=== PATIENT | female | born 1985 | race African-American/Black ===

== ENCOUNTER 2019-03-05 06:26 | Inpatient (IN) | payer OTHER ==
[2019-03-05] VITALS (20 sets, daily range): BP systolic 104–164; BP diastolic 64–109
[~2019-03-05] VITALS: Ht 167.6 cm; Wt 85.7 kg
[2019-03-05 06:52] LABS: ABSOLUTE NEUTROPHILS 7.1 thou/uL (1.4-8.2); BASOPHILS 0.8 % (0.0-2.0); EOSINOPHILS 5.1 % (0.0-3.0); HEMATOCRIT 34.1 % (37.0-47.0); HEMOGLOBIN 10.4 gm/dL (12.0-15.0); LYMPHOCYTES 21.2 % (24.0-44.0); MCH 21.4 pg (26.0-34.0); MCHC 30.6 g/dL (28.0-37.0); MCV 69.9 fL (80.0-100.0); MONOCYTES 7.9 % (1.0-8.0); PLATELET COUNT 297 thou/uL (150-400); RBC 4.87 mil/uL (4.20-5.00); RDW 20.2 % (10.5-14.5)
[2019-03-05] MEDS ORDERED: LISINOPRIL-HCT1 EAC1 PO (06:55)
[2019-03-05] MEDS ORDERED: BIRTH CONTROL PO (06:55)
[2019-03-05 06:58] LABS: CALCIUM 8.7 mg/dL (8.5-10.1); CREATININE 0.8 mg/dL (0.6-1.0); POTASSIUM 4.3 mmol/L (3.5-5.1)
[2019-03-05 07:04] LABS: TOTAL BILIRUBIN 0.2 mg/dL (<0.1-1.0); TOTAL PROTEIN 7.7 g/dL (6.4-8.2)
[2019-03-05 08:00] LABS: MAGNESIUM 1.7 mg/dL (1.8-2.4); TROPONIN-I <0.06 ng/mL (<0.06)
--- NOTE | 2019-03-05 08:04 | EKG ---
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
[2019-03-05 09:34] LABS: ABSOLUTE RETIC COUNT 0.0642 10^6/uL; HEMATOCRIT 32.7 % (37.0-47.0); HEMOGLOBIN 9.9 gm/dL (12.0-15.0); MCH 21.1 pg (26.0-34.0); MCHC 30.4 g/dL (28.0-37.0); MCV 69.4 fL (80.0-100.0); OBSERVED RETIC COUNT 1.36 % (0.6-2.6); RBC 4.71 mil/uL (4.20-5.00); RDW 20.6 % (10.5-14.5); WBC 11.3 thou/uL (4.0-11.0)
[2019-03-05 09:43] LABS: PROTIME 9.7 Seconds (9.3-11.4)
[2019-03-05 09:45] LABS: CALCIUM 8.1 mg/dL (8.5-10.1); CREATININE 0.9 mg/dL (0.6-1.0)
--- NOTE | 2019-03-05 09:46 | NUR ---
PT ARRIVE FROM ED AT 0900. NEW C/O BLOODY STOOLS AND ABD PAIN. DR LUGO CALLED, COMING SOON, WILL PUT IN ORDERS. START IVF. LABS DRAWN. PT TEARFUL, SAYS SHE HAS BEEN IGNORING HER SYMPTOMS, THOUGHT THEY WOULD GO AWAY.
[2019-03-05 09:47] LABS: % SATURATION 2 % (20-39); IRON 11 ug/dL (50-170); TIBC 482 ug/dL (250-450)
[2019-03-05 09:48] LABS: POTASSIUM 3.3 mmol/L (3.5-5.1)
--- NOTE | 2019-03-05 09:58 | NUR ---
CM ASSESSMENT: CASE OPENED FOR DC PLANNING. CLINICAL INFO REVIEWED. ADMITTED THRU ER WITH ANGIOEDEMA OF LOWER LIP, RECENTLY STARTED LISINOPRIL. MET WITH PT WHO IS ALERT AND ORIENTED X4. PT LIVES WITH S.O. AND 15 YO SON AND IS INDEPENDENT WITH ADLS/IADLS. PCP DAMIÁN ELDER. 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 APPEARS ADMITTING SAW PT IN ER AND WILL FOLLOW UP WITH VERIFYING INSURANCE.
[2019-03-05 10:22] LABS: FERRITIN 4 ng/mL (8-252)
--- NOTE | 2019-03-06 03:33 | NUR ---
ASSESSMENT: PT REMAIN ALERT AND ORIENT TIMES FOUR. UP AD DIDI TO BR WITH STEADY GAIT. REQUEST PAIN MEDS FOR FACIAL PAIN. LOWER LIP SLIGHTLY SWOLLEN. PT STATE THAT THE EDEMA IN HER LIPS/MOUTH HAS DECREASED SINCE HER ADMISSION. POSSIBLE DC TO HOME TODAY. SLOW PROGRESS TOWARDS DC GOALS, WILL CONTINUE TO MONITOR.
[2019-03-06 04:53] VITALS: BP 130/77
[2019-03-06 05:28] LABS: ALBUMIN 2.7 g/dL (3.4-5.0); ANION GAP 11 mmol/L (7-16); BUN 10 mg/dL (7-18); CALCIUM 7.8 mg/dL (8.5-10.1); CHLORIDE 106 mmol/L (98-107); CO2 21 mmol/L (21-32); CREATININE 0.6 mg/dL (0.6-1.0); GLUCOSE 142 mg/dL (74-106); MAGNESIUM 2.3 mg/dL (1.8-2.4); PHOSPHORUS 1.8 mg/dL (2.5-4.9); SGOT 10 U/L (15-37); SGPT < 6 U/L (30-65); SODIUM 138 mmol/L (136-145); TOTAL BILIRUBIN < 0.1 mg/dL (<0.1-1.0); TOTAL PROTEIN 6.8 g/dL (6.4-8.2)
[2019-03-06 05:37] LABS: HEMOGLOBIN 9.6 gm/dL (12.0-15.0)
[2019-03-06 05:41] LABS: HEMATOCRIT 31.1 % (37.0-47.0); MCH 21.7 pg (26.0-34.0); MCHC 30.8 g/dL (28.0-37.0); MCV 70.5 fL (80.0-100.0); PLATELET COUNT 273 thou/uL (150-400); RBC 4.41 mil/uL (4.20-5.00); RDW 20.5 % (10.5-14.5); WBC 10.2 thou/uL (4.0-11.0)
[2019-03-06 06:47] LABS: ABSOLUTE NEUTROPHILS 9.9 thou/uL (1.4-8.2)
[2019-03-06 06:48] LABS: ANISOCYTOSIS 1+; HYPOCHROMASIA 2+; MICROCYTES 2+; PLATELET ESTIMATE NORMAL
[2019-03-06 07:22] VITALS: BP 149/100
--- NOTE | 2019-03-06 10:21 | EKG ---
[address] [address] ELECTROCARDIOGRAM REPORT Name: NENOSolomonROCAELSUZIE ANDRE Room #: 363- ADM IN M.R.#: [id number] Admission: 03/05/19 Attend Phys: Phyllis Delgado MD Discharge: Date of : 81 Report #: [id number] THIS REPORT FOR: //name// 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 : 1985 Requested By: Phyllis Delgado Order Number: [id number] MD: Emiliano Urbina Measurements Intervals [place] Rate: 79 P: 42 MT: 168 QRS: -2 QRSD: 107 T: -3 QT: 413 QTc: 474 Interpretive Statements Sinus rhythm Probable left atrial enlargement Borderline T abnormalities, inferior leads Compared to ECG 03/05/2019 06:57:01 T-wave abnormality now present Prolonged QT interval no longer present Electronically Signed On 03-06-2019 10:21:20 CDT by Emiliano Urbina [email or web address] <ELECTRONICALLY SIGNED> By: Emiliano Urbina MD 03/06/19 1021 0847 0847 Emiliano Urbina MD /EPI
[2019-03-06 11:26] VITALS: BP 120/87
[2019-03-06 15:32] LABS: HEMATOCRIT 30.6 % (37.0-47.0); HEMOGLOBIN 9.3 gm/dL (12.0-15.0)
[2019-03-06 15:51] VITALS: BP 137/93
[2019-03-06 16:33] VITALS: BP 142/86; BP 152/108
[2019-03-06 19:07] VITALS: BP 151/97
--- NOTE | 2019-03-06 19:20 | NUR ---
ASSUMED CARE AROUND 0715. AXOX4. C/O CHEST PAIN IN AM. NOTIFIED MD, EKG, LAB DRAWS COMPLETED WITH NNO. PER MD COULD BE ESOPHAGEAL IRRITATION. PER , PT CANNOT GO HOME UNTIL HGB IMPROVED AND GI SERVICE IS FURTHER MORE CONSULTED. VISITED PT AT BEDSIDE AND MADE SURE PT'S QUESTIONS WERE ASKED. ONETIME XANAX ORDER AND NEW ORDER FOR AMLODIPINE ORDER. CARE TRANSFERRED TO DAY RN AT THIS TIME.
[2019-03-07 02:52] VITALS: BP 121/75
[2019-03-07 05:46] LABS: BASOPHILS 0.5 % (0.0-2.0); EOSINOPHILS 0.1 % (0.0-3.0); HEMATOCRIT 29.6 % (37.0-47.0); HEMOGLOBIN 8.9 gm/dL (12.0-15.0); LYMPHOCYTES 23.4 % (24.0-44.0); MCH 21.5 pg (26.0-34.0); MCHC 30.1 g/dL (28.0-37.0); MCV 71.3 fL (80.0-100.0); MONOCYTES 4.6 % (1.0-8.0); PLATELET COUNT 273 thou/uL (150-400); POLYS 71.4 % (36.0-66.0); RBC 4.14 mil/uL (4.20-5.00); RDW 20.6 % (10.5-14.5); WBC 12.6 thou/uL (4.0-11.0)
[2019-03-07 05:55] LABS: CALCIUM 8.1 mg/dL (8.5-10.1); CREATININE 0.7 mg/dL (0.6-1.0); PHOSPHORUS 1.7 mg/dL (2.5-4.9); POTASSIUM 3.3 mmol/L (3.5-5.1)
--- NOTE | 2019-03-07 06:02 | NUR ---
PT UP AD DIDI TO BATHROOM. PT TOOK A SHOWER LAST NIGHT. PT HAD PANIC ATTACK, XANAX GIVEN WITH GOOD SUCCESS. PT HAD COMPLAINT OF CHEST PAIN AROUND 0300, GAVE IV PAIN MEDICATION AND ORAL TYLENOL, AND NO MORE COMPLAINTS OF PAIN. IS ROOMING IN. HOURLY ROUNDING.
[2019-03-07 09:19] VITALS: BP 140/98
[2019-03-07 11:51] VITALS: BP 129/95
[2019-03-07 17:01] VITALS: BP 147/101
[2019-03-07 17:12] LABS: URINE BILIRUBIN NEGATIVE (Negative); URINE BLOOD NEGATIVE (Negative); URINE CLARITY CLEAR; URINE COLOR YELLOW; URINE GLUCOSE-RANDOM* NEGATIVE (Negative); URINE KETONES NEGATIVE (Negative); URINE LEUKOCYTES-REFLEX NEGATIVE (Negative); URINE PROTEIN (DIPSTICK) NEGATIVE (Negative); URINE UROBILINOGEN 0.2 E.U./dl (0.2-1.0)
[2019-03-07 17:14] LABS: URINE NITRITE-REFLEX POSITIVE (Negative)
[2019-03-07 17:24] LABS: SQUAMOUS 0-3 Few /LPF (0-3)
[2019-03-07 17:25] LABS: BACTERIA-REFLEX >30 Many /HPF (None Seen); CASTS None Seen /LPF (None Seen); CRYSTALS None Seen /LPF (None Seen); URINE RBC None Seen /HPF (0-2); URINE WBC-REFLEX 0-5 Rare /HPF (0-5)
[2019-03-07 19:43] VITALS: BP 120/88
[2019-03-08 04:41] VITALS: BP 129/91
[2019-03-08 05:45] LABS: ABSOLUTE NEUTROPHILS 6.7 thou/uL (1.4-8.2); HEMATOCRIT 30.1 % (37.0-47.0); HEMOGLOBIN 9.1 gm/dL (12.0-15.0); LYMPHOCYTES 25.8 % (24.0-44.0); MCH 21.6 pg (26.0-34.0); MCHC 30.2 g/dL (28.0-37.0); MCV 71.3 fL (80.0-100.0); MONOCYTES 6.2 % (1.0-8.0); PLATELET COUNT 253 thou/uL (150-400); RBC 4.23 mil/uL (4.20-5.00); RDW 20.3 % (10.5-14.5); WBC 10.3 thou/uL (4.0-11.0)
[2019-03-08 05:57] LABS: ALBUMIN 2.6 g/dL (3.4-5.0); ANION GAP 7 mmol/L (7-16); BUN 9 mg/dL (7-18); CALCIUM 7.9 mg/dL (8.5-10.1); CHLORIDE 106 mmol/L (98-107); CO2 26 mmol/L (21-32); CREATININE 0.7 mg/dL (0.6-1.0); GLUCOSE 90 mg/dL (74-106); MAGNESIUM 1.7 mg/dL (1.8-2.4); PHOSPHORUS 1.8 mg/dL (2.5-4.9); POTASSIUM 3.7 mmol/L (3.5-5.1); SGOT 12 U/L (15-37); SGPT < 6 U/L (30-65); SODIUM 139 mmol/L (136-145); TOTAL BILIRUBIN < 0.1 mg/dL (<0.1-1.0); TOTAL PROTEIN 6.2 g/dL (6.4-8.2)
--- NOTE | 2019-03-08 06:40 | NUR ---
Pt. refused hydrocortisone suppository last night. She also had golytely during the day but didn't finished it. She reported small soft bm. Kept NPO after MN for ED today. She requested pain med for abdominal pain with some relief. She stated she slept well last night. She has been calm and cooperative this am. Will continue to monitor.
[2019-03-08 07:55] VITALS: BP 130/95
[2019-03-08] MEDS ORDERED: NORVASC5 MG PO (11:44)
[2019-03-08] MEDS ORDERED: ANUCORT-HC25 MG RECTAL (11:44)
[2019-03-08 12:15] VITALS: BP 142/95
--- NOTE | 2019-03-08 15:44 | NUR ---
DISCHARGE NOTE: SW reviewed chart and spoke with nursing and attending physician. Pt transferred to 3W from ICU. Pt to have EGD today and then will discharge home if medically stable. No discharge needs identified at this time. SW is available to assist should needs arise.
[2019-03-08] MEDS ORDERED: IRON 100-VITAM1 EACH PO (16:31)
[2019-03-08 17:33] VITALS: BP 142/95
[2019-03-08 17:47] VITALS: BP 142/95
--- NOTE | 2019-03-08 18:32 | NUR ---
Discharge instruction were related to patient. Paperwork signed and appropriate documents sent home with patient. Tele and IV were removed from patient. The patient did not wait for wheelchair transport and walked off the floor without assistance.
--- NOTE | 2019-03-09 12:41 | P ---
[facility] [place] [address] PROCEDURE REPORT Name: ROCAEL MONTANA Room #: 363-P [facility] IN M.R.#: [id number] Admission: 03/05/19 Attend Phys: Phyllis Delgado MD Discharge: 03/08/19 Date of : 81 Report #: [id number] THIS REPORT FOR: //name// CC: JERROD SIMEON Delgado MD DATE OF SERVICE: 03/08/2019 PROCEDURE PERFORMED: Upper endoscopy with biopsies. HISTORY OF PRESENT ILLNESS: The patient is a 33-year-old female with a history of anemia and Hemoccult negative. Recent history of angioedema, now is resolved. She does have heavy menses. She does report intermittent midepigastric abdominal pain. Plan is for upper endoscopy. DESCRIPTION OF PROCEDURE: The risks and benefits of the procedure were explained to the patient, those risks including but not limited to bleeding, perforation and the risk of sedation. She understood these risks and gave informed consent. Sedation was given using propofol per anesthesia. Next, using a standard Olympus upper endoscope, the scope was placed in the patient's mouth and advanced under direct vision through the esophagus, stomach and into the second portion of the duodenum. The esophagus was normal throughout. The GE junction was normal. Overall, the gastric mucosa was normal. Biopsies were obtained to rule out H. pylori. The pylorus was normal and patent. The duodenal bulb, first and second portion were also normal. Biopsies also obtained to rule out the possibility of celiac sprue. The scope was then withdrawn and the procedure terminated. The patient tolerated the procedure well. IMPRESSION: Normal upper endoscopy. RECOMMENDATIONS: 1. Await biopsy results. 2. Continue to monitor hemoglobin. 3. Continue p.o. oral iron. Suspect the patient's anemia may be secondary to menses as her stools were Hemoccult negative. Thank you for allowing me to participate in her care. <ELECTRONICALLY SIGNED> By: Alen Fowler MD 03/09/19 1241 1618 0116 Alen Fowler MD /nt
--- NOTE | 2019-03-11 14:06 | PATH ---
[facility] [place] [address] PATHOLOGY RPT PROCEDURE Name: ROCAEL OLIVIA Room #: 363-P DIS IN M.R.#: [id number] Admission: 03/05/19 Date of : 81 Discharge: 03/08/19 Report #: [id number] Path Case #: [id number] [facility] Accession Number: [id number] . 01 Material submitted: . PART A: duodenum - BX DUODENUM PART B: stomach - BX GASTRIC . 01 Clinical history: . Preop DX: abd pain, anemia Postop DX: same A. R/O sprue B. R/O H. pylori . 02 Diagnosis: A. Small bowel mucosa, duodenum, endoscopic biopsy: - No diagnostic abnormalities present. - Negative for villous blunting or increase in intraepithelial lymphocytes. . B. Gastric mucosa, gastritis, endoscopic biopsy: - Mild reactive gastropathy: - Negative for intestinal metaplasia or atrophy. - Negative for Helicobacter pylori (properly controlled immunohistochemical stain performed). . 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 02 Electronically signed: . Heidi Forrester MD, Pathologist NPI- [id number] . 01 Gross description: . A. Received in formalin labeled "Rocael Olivia Kasandra duodenum R/O Sprue," are six fragments of tijerina soft tissue measuring 0.9 x 0.5 x 0.1 cm in aggregate dimensions and ranging from 0.2 to 0.5 cm in maximum dimension. The specimen is submitted entirely in cassette A1. The smallest fragments may not survive processing. . B. Received in formalin labeled "Rocael OliviaKasandra gastric R/O H. Pylori," are three segments of tijer[place] soft tissue measuring 0.7 x 0.5 x 0.2 cm in aggregate dimensions and ranging from 0.3 to 0.5 cm in maximum dimension. The specimen is submitted entirely in cassette B1. (DAC; 03/09/2019) XNC/XNC 03/09/2019 0905 Local . [address] [place] [address] PATHOLOGY RPT PROCEDURE Name: ROCAEL OLIVIA THAI Room #: 363-P DIS IN M.R.#: [id number] Admission: 03/05/19 Date of : 81 Discharge: 03/08/19 Report #: [id number] Path Case #: [id number] Pathologist provided ICD-10: R10.9, D64.9 . 02 CPT . 759446, 533680, Z57750 Specimen Comment: A courtesy copy of this report has been sent to Specimen Comment: [phone], , . Specimen Comment: Report sent to ,DR ELDER / DR LUGO Specimen Comment: A duplicate report has been generated due to demographic updates. Performed at: [address], [place] [id number] MD Wilfred Khan MD Phone: [phone] Performed at: [address] [id number] MD Heidi Forrester MD Phone: [phone]
--- NOTE | 2019-03-23 10:14 | H ---
[facility] [place] [address] HISTORY AND PHYSICAL Name: YAMILEXCHRISTIANROCAEL THAI Room #: 363-P [facility] IN M.R.#: [id number] Admission: 03/05/19 Attend Phys: Phyllis Delgado MD Discharge: 03/08/19 Date of : 81 Report #: [id number] THIS REPORT FOR: //name// CC: JERROD Delgado DATE OF SERVICE: 03/05/2019 PRIMARY CARE PHYSICIAN: Dr. Krissy Aquino, phone #[phone] Emergency contact for the patient is her [id number], Ashleigh [place], [phone] and other emergency contact is her , Ash Brunson. CHIEF COMPLAINT: 1. Swelling of the lip that started today. 2. Abdominal pain in the right lower quadrant of abdomen since this morning. 3. Blood in stool, bright red blood per rectum intermittently for last 1 month. HISTORY OF PRESENT ILLNESS: The patient is a very pleasant 33-year-old female who is tearful and anxious and informs me that this is not she had planned her day this morning. 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 The patient informs me that she was started on lisinopril and hydrochlorothiazide along with oral contraceptive pills a month ago when she was noticed to have high blood pressure and the patient had done reasonably well for past 1 month for her blood pressure; however, she then started having some lip tingling yesterday evening and then started with the lip swelling this morning. The patient noticed that the left lower lip was severely worsened and it progressed very quickly. She also noticed some throat swelling earlier today, which subsequently had gotten better, but she continued to have some persistent cough with shortness of breath, feeling of shortness of breath, but she was really not dyspneic. The patient informs me that she has not had any fever, shaking chills, night sweats. She does not have any nausea, vomiting, diarrhea. She has not had any constipation as well. The patient has not had any fever, chills, night sweats in past 1 month either. She does have heavy periods, they last for 6 days and the 6 day it starts to taper down and become slower and she has been told to have anemia since 2011 when she gave to her daughter who then in 14 days because of holes in her heart, some congenital heart defects which could not be repaired and the patient again starts crying talking about it. The patient has been anemic since then. The patient informs me that she has not had any diagnosis of depression. She does deal with sad feelings every now and then, but no suicidal ideation or homicidal ideation. The patient informs me that she has not had any history of hemorrhoids or GI problems prior to this past 1 month and oral contraceptive pills were started because of metromenorrhagia and this has been her first month and she is due for periods in [facility] [address] [place] [address] HISTORY AND PHYSICAL Name: YAMILEXCHRISTIANROCAELSUZIE ANDRE Room #: 363-P [facility] IN M.R.#: [id number] Admission: 03/05/19 Attend Phys: Phyllis Delgado MD Discharge: 03/08/19 Date of : 81 Report #: [id number] about a couple of days. PAST MEDICAL HISTORY: Significant for: 1. Anemia since 2011. 2. Menorrhagia. 3. Hypertension. 4. Tobacco use. 5. Three times a week alcohol use. ALLERGIES: The patient is allergic to LISINOPRIL and PEANUTS. CURRENT MEDICATIONS: Prior to admitting to the ER today, lisinopril-hydrochlorothiazide and oral contraceptive pills. PERSONAL AND SOCIAL HISTORY: The patient takes natural tobacco one cigarette a day and started 5 years ago and she does drink one glass of wine at least 3-5 nights a week, maybe more or less but never more than one glass of wine more or less days. Denies any recreational drug use. 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 FAMILY HISTORY: Mother when she was 7 years old and father with myocardial infarction at the age of 56 years, a year ago, had known coronary artery disease. SURGICAL HISTORY: The patient has had 2 C-sections. Other than that, no other history. REVIEW OF SYSTEMS: The patient has had blood in stool for 1 month, bright red blood per rectum as noted above and fatigue progressively worsening in last 1 month and no history of hemorrhoids. Denies any constipation or diarrhea or any change in bowel habits. Review of systems is also positive for some depression, just sad feelings but no suicidal or homicidal ideation. The patient also informs me that she has had interrupted sleep and she cannot really explain any reason for that. REVIEW OF SYSTEMS: Negative for dysuria, hematuria, frequency or urgency of urination. Denies any back pain or denies any chronic pain symptoms. PHYSICAL EXAMINATION: VITAL SIGNS: Temperature 36.8, heart rate 84, respirations 16, blood pressure 128/95, pulse oximetry 99% when she presented to the Emergency Room. GENERAL: Alert and oriented to time, place and person, very pleasant 33-year-old female seen in ICU with a very depressed affect, tearful and anxious but not in any acute cardiopulmonary distress. HEENT: Normocephalic, atraumatic. Pupils equally round, reactive to light and accommodation. Extraocular muscle movement intact. Conjunctivae clear. Mild pallor noted. Sclerae nonicteric. Oropharynx clear. Mucous membranes moist. [facility] [address] [place] [address] HISTORY AND PHYSICAL Name: ROCAEL MONTANA Room #: 363-P [facility] IN [facility]#: [id number] Admission: 03/05/19 Attend Phys: Phyllis Delgado MD Discharge: 03/08/19 Date of : 81 Report #: [id number] NECK: Supple, no JVD, no lymphadenopathy, no thyromegaly. HEART: S1, S2, regular. No murmur, no S3, no S4. LUNGS: Clear to auscultation bilaterally without any crackles or wheezes and equal breath sounds bilaterally. ABDOMEN: Soft, nontender in epigastric area and right and left upper quadrants; however, the patient does have some tenderness in the right lower quadrant without any mass or rebound or rigidity noted and normoactive bowel sounds present. No hepatosplenomegaly noted. Well-healed scar of noted. EXTREMITIES: No edema both lower extremities. NEUROLOGIC: Cranial nerves 2-12 are intact. Neurological exam is nonfocal. PSYCHIATRIC: The patient has a sad affect, but good eye contact and is anxious. LABORATORY DATA: WBC 11.3, hemoglobin 9.9, hematocrit 32.7, platelet count 299. The patient has an impressively low MCV was 69.4 and MCH is low at 21.1, RDW is elevated at 20.6, everything pointing to the iron deficiency anemia. The differential with significant for eosinophils elevated. PT is 9.7, INR 1.0. Chemistries indicate sodium 138, potassium 3.3, chloride 104, bicarbonate 23, anion gap 11, BUN 16, creatinine 0.9. Estimated GFR 86, glucose 122, calcium 8.1. Iron 11, TIBC 482, % saturation 2 and ferritin very low at 4, GGTP 16 and lipase 97. Vitamin B12 was also low at 270. WBC 11, hemoglobin at the time of admission was 10.4 and eosinophils 5.1% with a mild lymphopenia, but a normal neutrophil count. Magnesium was low at 1.7. Serum test was negative. The patient also had a chest x-ray which was unremarkable and electrocardiogram indicates borderline prolonged CO interval with prolonged QT interval of 511. Chest x-ray has been ordered and occult blood is pending. ASSESSMENT AND PLAN: 1. Angioedema secondary to most likely lisinopril use. The patient has type and screen done already, so in case we have to give her fresh frozen plasma if the symptoms progressively worsened. The patient is on H2 brian, has received Benadryl in the Emergency Room, but will not continue the same as per the patient already has QT prolongation and would avoid any medication that can cause QT prolongation. Would give Solu-Medrol over 24 hours and continue IV Pepcid. 2. Microcytic anemia with a history of menorrhagia for a long time. Appreciate GI consult and the patient will need colonoscopy as well as the patient has a history of bright red blood per rectum intermittently for the last 4 weeks. Appreciate GI consult and that they are managing iron deficiency anemia with IV iron. 3. Right lower quadrant abdominal pain and tenderness. The patient does not have allergy to iodine; however, with angioedema and LISINOPRIL and PEANUT allergy, I am skeptical whether to get CT scan of abdomen and pelvis with contrast or not. We will go ahead and do a CT abdomen and pelvis with oral contrast if pelvic and vaginal ultrasound is abnormal. Discussed with the patient plan of care and she agrees with that. 4. Eosinophilia in the blood work, consistent with allergic reaction. [facility] [address] [place] [address] HISTORY AND PHYSICAL Name: ROCAEL MONTANA Room #: 363-P [facility] IN M.R.#: [id number] Admission: 03/05/19 Attend Phys: Phyllis Delgado MD Discharge: 03/08/19 Date of : 81 Report #: [id number] 5. Hypokalemia. Replace potassium IV and hypomagnesemia, replace magnesium. The goal is to keep magnesium above 2 and potassium above 4 in the setting of elevated QT prolongation. Discussed with the patient about tobacco and alcohol use and advised her to cut down to the point of less than 1 ounce in 24 hours and also tobacco to stop completely. The patient understands the risk and side effects and will think about it. The patient is a full code and emergency contact is listed above. DVT prophylaxis, we will use pneumatic compression devices and GI prophylaxis, will use IV Pepcid for now. If the Hemoccult is positive, then we will use Protonix and plan of care was discussed with the patient as well as the GI team as well as the RN taking care of the patient in the Emergency Room. <ELECTRONICALLY SIGNED> By: Phyllis Delgado MD 03/23/19 1014 1114 1159 Phyllis Delgado MD /nt
== END 2019-03-08 18:34 | disposition home or self-care (01) | DRG 916 ==
LOC: ER 06:26 → 3W 07:51 → EROBS 07:51 → ICU 09:11 → 3W 18:26
PROVIDERS: Emergency Medicine; ADMIT Internal Medicine
PROC: 0DB78ZX Excision of Stomach, Pylorus, Via Natural or Artificial Opening Endoscopic, Diagnostic (ICD-10-PCS; principal; 2019-03-08)
DX: T78.3XXA Angioneurotic edema, initial encounter (principal); K92.1 Melena; F17.210 Nicotine dependence, cigarettes, uncomplicated; I10 Essential (primary) hypertension; D50.9 Iron deficiency anemia, unspecified; D72.1 Eosinophilia; R10.31 Right lower quadrant pain; E87.6 Hypokalemia; E83.42 Hypomagnesemia; I45.81 Long QT syndrome; E53.8 Deficiency of other specified B group vitamins; F32.9 Major depressive disorder, single episode, unspecified; N92.0 Excessive and frequent menstruation with regular cycle; K21.9 Gastro-esophageal reflux disease without esophagitis; T46.4X5A Adverse effect of angiotensin-converting-enzyme inhibitors, initial encounter; R07.89 Other chest pain; Z79.899 Other long term (current) drug therapy; Z88.8 Allergy status to other drugs, medicaments and biological substances; Z91.010 Allergy to peanuts; Z82.49 Family history of ischemic heart disease and other diseases of the circulatory system; Z98.891 History of uterine scar from previous surgery; Z72.89 Other problems related to lifestyle; Y92.89 Other specified places as the place of occurrence of the external cause
CPT/HCPCS: 10879; 62110; 62900; 70005